=== PATIENT | male | born 1995 | race African-American/Black ===

== ENCOUNTER 2016-08-12 20:54 | Emergency (ER) | payer OTHER ==
[~2016-08-12] VITALS: Ht 162.6 cm; Wt 68.9 kg
[2016-08-12 23:42] VITALS: BP 132/78
== END 2016-08-12 23:43 | disposition home or self-care (01) ==
LOC: ED 20:54
DX: R07.89 Other chest pain (principal); X14.0XXA Inhalation of hot air and gases, initial encounter; J45.909 Unspecified asthma, uncomplicated; Y93.89 Activity, other specified; Y92.89 Other specified places as the place of occurrence of the external cause; Y99.8 Other external cause status